=== PATIENT | male | born 1955 | race Caucasian/White ===

== ENCOUNTER 2017-04-16 09:38 | Day surgery (SDC) | payer OTHER ==
[~2017-04-16 09:38] MED LIST: RINGER'S SOLUTION,LACTATED 1,000 ML IV PRN
[2017-04-16] MEDS ORDERED: RINGER'S SOLUTION,LACTATED 1,000 ML IV ONE (10:40)
[2017-04-16] MEDS ORDERED: RINGER'S SOLUTION,LACTATED 900 ML IV ONE (10:55)
[2017-04-16] MEDS ORDERED: RINGER'S SOLUTION,LACTATED 1,000 ML IV PRN (11:45)
[2017-04-16 12:46] VITALS: BP 135/85
--- NOTE | 2017-04-16 19:46 | OR ---
Operative Report - Dictated Report Narrative: OPERATIVE REPORT DATE OF OPERATION: 04/16/2017 PREOPERATIVE DIAGNOSIS: No recent dedicated colon studies POSTOPERATIVE DIAGNOSIS: Polyps at 15 cm, 25 cm, and in the cecum (pathology pending) OPERATION: Colonoscopy with hot biopsy forceps polypectomy 3 SURGEON: Sandy Villar MD ANESTHESIA: TANGELA Zhao CRNA INDICATIONS FOR PROCEDURE: The patient is a 61-year-old male referred for colon surveillance by Dr. Scott. The patient's last colonoscopy was in 2006. He had a hyperplastic polyp removed at that time. He is currently asymptomatic. There is no family history of colon cancer. FINDINGS: Three 3 mm areas of polypoid change. One in the rectum, one at 15 cm , at 25 cm, and one in the cecum. (Pathology pending) NARRATIVE OF PROCEDURE: The patient was identified in the holding area, and prior to the administration of anesthetic, a multidisciplinary timeout was observed. With the patient in the left lateral position and after the administration of intravenous sedation, the perineum was inspected. There was no evidence of pilonidal disease or skin breakdown. The external appearance of the anus was normal. Sphincter tone was good. The flexible fiberoptic colonoscope was inserted into the rectum which was insufflated with air. The rectal mucosa and submucosal vascular pattern appeared normal, the prep was seen to be complete. The scope was advanced through the sigmoid colon, up the descending colon, and around the splenic flexure where the triangular haustral architecture of the transverse colon was seen. The scope was advanced across the transverse colon, around the hepatic flexure to the cecum, where the confluence of tenia and the ileocecal valve were identified. A 3 mm area of polypoid change was identified in the cecum. This was biopsied and then thoroughly destroyed with electrocautery. The site was seen to be complete and hemostatic. The mucosa at this level appeared otherwise normal. The scope was then slowly withdrawn in a circular fashion so that all aspects of colonic mucosa were inspected. The colon was very capacious and character but relatively normal in course. The haustral architecture appeared well preserved throughout with no evidence of external compression. The mucosa and submucosal vascular pattern appeared normal, specifically there was no gross evidence to suggest colitis or inflammatory bowel disease and no AV malformations were seen. No gwyn diverticular openings were demonstrated. 3 mm areas of polypoid change were encountered at 15 cm and 25 cm. These were biopsied and then thoroughly destroyed with electrocautery. Both sites were seen to be complete and hemostatic.. The scope was gradually withdrawn to the level of the rectum. As much insufflated air as possible was removed. The scope was withdrawn from the patient and the procedure terminated. The patient tolerated the anesthetic and procedure well without complication and was transferred back to the ambulatory surgery area awake and in stable condition. The patient remained stable throughout a period of postoperative observation. He denied abdominal discomfort, was able to tolerate by mouth intake, and was up without assistance. I shared the operative findings with the patient and he was given copies of the photographs which appear in the medical record. He was discharged home with instructions not to engage in hazardous activity today, but may resume normal activity tomorrow, and advance diet as tolerated. He is to continue those medications as listed in the history and physical exam. I made arrangements to contact him with the biopsy reports and will make additional recommendations for treatment and follow-up based upon those results. Reviewed and electronically signed
== END 2017-04-16 09:39 | disposition home or self-care (01) ==
LOC: AMB 09:38
PROVIDERS: ATTEND Surgery
PROC: 0DBE8ZX Excision of Large Intestine, Via Natural or Artificial Opening Endoscopic, Diagnostic (ICD-10-PCS; 2017-04-16)
PROC: 0DBP8ZX Excision of Rectum, Via Natural or Artificial Opening Endoscopic, Diagnostic (ICD-10-PCS; 2017-04-16)
PROC: 0DBH8ZX Excision of Cecum, Via Natural or Artificial Opening Endoscopic, Diagnostic (ICD-10-PCS; principal; 2017-04-16 12:00)
DX: Z12.11 Encounter for screening for malignant neoplasm of colon (principal); D12.0 Benign neoplasm of cecum; K63.5 Polyp of colon; K62.1 Rectal polyp; I10 Essential (primary) hypertension; E11.9 Type 2 diabetes mellitus without complications; E78.5 Hyperlipidemia, unspecified; E66.9 Obesity, unspecified; Z68.31 Body mass index [BMI] 31.0-31.9, adult; Z87.891 Personal history of nicotine dependence